=== PATIENT | male | born 1980 | race Caucasian/White ===

== ENCOUNTER 2020-05-27 19:01 | Emergency (ER) | payer BC, SELFPAY ==
[2020-05-27] MEDS ORDERED: Famotidine In NaCl 20 mg/50 ml Premix Bag ONE (19:28)
[2020-05-27] MEDS ORDERED: Lidocaine Viscous Sol 2% 15 ml UD Cup ONE (19:28)
[2020-05-27] MEDS ORDERED: Mag-Al Plus 1200 MG/1200 MG/120 MG/30 ML UDCUP ONE (19:28)
[2020-05-27 19:30] LABS: #Lymphocytes 2.4 thou/uL (1.20-3.40); #Monocytes 0.7 thou/uL (0.11-0.59); #Neutrophils 7.4 thou/uL (1.40-6.50); %Basophils 0.4 % (0.0-1.0); %Eosinophils 0.2 % (0.0-10.0); %Monocytes 6.4 % (0.0-10.0); Hemoglobin 15.3 g/dL (14.0-18.0); Mean Corpuscular Hemoglobin 31.5 pg (27.0-31.0); Mean Corpuscular Volume 90.2 fL (78.0-98.0); Mean Platelet Volume 8.6 fL (7.4-10.4); Platelet Count 206 thou/uL (130-400); RBC Distribution Width 11.1 % (11.5-14.5); Red Blood Cell (RBC) Count 4.85 mill/uL (4.70-6.10); White Blood Cell (WBC) Count 10.6 thou/uL (4.8-10.8)
[2020-05-27 19:44] LABS: ALT (SGPT) 38 U/L (8-55); AST (SGOT) 24 U/L (5-34); Albumin 4.8 g/dL (3.5-5.0); Alkaline Phosphatase 67 U/L (40-110); Anion Gap 19 mmol/L (10-20); BUN (Urea Nitrogen) 13 mg/dL (8.9-20.6); Bilirubin, Total 0.4 mg/dL (0.2-1.2); Calc. Creatinine Clearance 0 mL/min (70-130); Calcium 10.5 mg/dL (7.8-10.44); Carbon Dioxide 24 mmol/L (22-29); Chloride 103 mmol/L (98-107); Globulin 2.7 g/dL (2.4-3.5); Glucose 109 mg/dL (70-105); Lipase 30 U/L (8-78); Potassium 3.7 mmol/L (3.5-5.1); Protein, Total 7.5 g/dL (6.0-8.3); Sodium 142 mmol/L (136-145)
== END 2020-05-27 20:40 | disposition home or self-care (01) ==
LOC: BURERS 19:01
DX: K29.00 Acute gastritis without bleeding (principal); F10.10 Alcohol abuse, uncomplicated; Z87.891 Personal history of nicotine dependence
CPT/HCPCS: 71045; 80053; 83690; 84484; 85025; 93005; 94760; 96365